=== PATIENT | female | born 1940 | race Caucasian/White ===

== ENCOUNTER 2024-07-29 08:11 | Inpatient (IN) ==
[~2024-07-29 08:11] MED LIST: Naloxone 0.4 mg VIAL 0.4 mg/ml 1 ml VIAL IV PRN; Ondansetron 4 mg VIAL 2 MG/ML 2 ml VIAL IV PRN; Propofol 10 mg/ml 100 ML BTL 1,000 MG/100 ML BTL ONE
[2024-07-29] MEDS: Buffered Lidocaine 1% SYRIN 1 ml INTRADERM ONE (08:42)
[2024-07-29] MEDS: Acetaminophen IV 1 GM/100ML 1,000 MG/100 ML BAG IV ONE (08:42)
[2024-07-29] MEDS: Scopolamine 1 mg/72hr PATCH TRANSDERM ONE (08:43)
[2024-07-29 09:04] LABS: Rapid COVID-19 Molecular Undetected (Undetected)
[2024-07-29] MEDS ORDERED: Tranexamic Acid 1 GM/100ML BAG 2,000 MG/200 ML BAG IV ONE (09:07)
[2024-07-29] MEDS ORDERED: ceFAZolin 2 GM PREMIX 2 GM/50 ML BAG ONE (09:07)
[2024-07-29] MEDS ORDERED: Lidocaine 2% PF 5 ML VIAL ONE (09:12)
[2024-07-29] MEDS ORDERED: Phenylephrine IV 10 MG/ML 1 ml VIAL ONE (09:12)
[2024-07-29] MEDS ORDERED: Rocuronium 50 mg VIAL 10 mg/ml 5 ml VIAL (50 mg) ONE (09:12)
[2024-07-29] MEDS ORDERED: Ondansetron 4 mg VIAL 2 MG/ML 2 ml VIAL ONE (09:12)
[2024-07-29] MEDS ORDERED: Ropivacaine 0.2% 2 MG/ML VIAL ONE (09:14)
[2024-07-29] MEDS ORDERED: Midazolam 2 mg/2 ml VIAL 1 mg/ml 2 ml VIAL (2 mg) ONE ×2 (09:34→10:30)
[2024-07-29] MEDS ORDERED: fentaNYL 100 mcg/2 ml 50 MCG/ML VIAL ONE ×2 (09:34→14:37)
[2024-07-29] MEDS: Lactated Ringers 1000 ml BAG 1,000 ML IV SCH ×2 (09:40→20:09)
[2024-07-29] MEDS ORDERED: ROPIVACAINE 5 MG/ML 30 ML BTL (0.5%) ONE (11:03)
[2024-07-29] MEDS ORDERED: Bupivacaine 0.5% PF 10 ML SDV VIAL INJ ONE (11:39)
[2024-07-29] MEDS ORDERED: Calcium Carb (TUMS) 500 mg CHEW TAB PO PRN (14:07)
[2024-07-29] MEDS ORDERED: Magnesium Hydroxide LIQ 30 ML UDC PO PRN (14:07)
[2024-07-29] MEDS ORDERED: Ondansetron 4 mg VIAL 2 MG/ML 2 ml VIAL IV PRN (14:07)
[2024-07-29] MEDS ORDERED: Lactulose 30 ml UDC PO PRN (14:07)
[2024-07-29] MEDS: fentaNYL 100 mcg/2 ml 50 MCG/ML VIAL IV PRN (14:37)
[2024-07-29] MEDS ORDERED: HYDROmorphone 1 MG/1 ML SYRINGE ONE (17:47)
[2024-07-29] MEDS: HYDROmorphone 1 MG/1 ML SYRINGE IV PRN (17:48)
[2024-07-29 18:50] LABS: ABS Lymphocytes 2.1 10^3/uL (1.0-4.8); ABS Monocytes 1.3 10^3/uL (0.0-0.9); ABS Neutrophils 18.5 10^3/uL (1.5-7.6); ABS Nucleated RBC 0.01 10^3/ul; Hematocrit 35.3 % (35-45); Hemoglobin 11.6 g/dL (11.5-14.3); Lymphocyte % 9.4 %; Mean Corpuscular Hemoglobin 30.7 pg (27-33); Mean Corpuscular Hgb Conc 32.9 g/dL (31-36); Mean Corpuscular Volume 93.4 fL (80-97); Mean Platelet Volume 8.1 fL (7.5-11.2); Platelet Count 245 10^3/uL (150-450); Red Blood Count 3.78 10^6/uL (3.63-4.92); Red Cell Distribution Width 12.8 % (12-17); White Blood Count 21.8 10^3/uL (3.8-11.8)
[2024-07-29 19:12] LABS: Albumin/Globulin Ratio 1.8 (1-3); Calcium 8.9 mg/dL (8.6-10.3); Creatinine, Serum 0.81 mg/dL (0.51-0.95); Globulin 2.2 g/dL (2-4); Potassium 3.9 mmol/L (3.5-5.0); Total Bilirubin 0.4 mg/dL (0.2-1.0); Total Protein 6.2 g/dL (6.4-8.9); eGFR CKD-EPI 72.4 (>60)
[2024-07-29] MEDS: Nitrofurantoin (macrocrystals) 50 mg CAP PO SCH (20:00)
[2024-07-29] MEDS: Morphine 2 MG/ML SYRINGE IV PRN (20:01)
[2024-07-29] MEDS: ceFAZolin 2 GM PREMIX 2 GM/50 ML BAG IV SCH (20:11)
[2024-07-29] MEDS: Fluorometholone 0.1% OPTH.SUS 5 ML BTL BOTH EYES SCH (20:15)
[2024-07-29 20:22] LABS: High Sensitivity Troponin 1 Hr 5 pg/mL (<15)
[2024-07-29] MEDS: Iohexol 350 (CONTRAST) 500 ML MDV IV ONE (20:41)
[2024-07-29] MEDS: Magnesium Hydroxide LIQ 30 ML UDC PO SCH (21:06)
[2024-07-29] MEDS: NF: Azelastine 0.15% NASAL(NF) 30 ML BTL BOTH NARES SCH (21:17)
[2024-07-29] MEDS: Ondansetron ODT 4 mg TAB 4 MG TAB PO PRN (21:49)
[2024-07-29] MEDS: Netarsudil Mesylat/Lananoprost 0.02%-0.005% EYE DRP 2.5 ml BOTTLE BOTH EYES SCH (21:56)
[2024-07-29 23:46] LABS: High Sensitivity Troponin 3 Hr 7 pg/mL (<15)
[2024-07-30 03:12] LABS: ABS Lymphocytes 1.1 10^3/uL (1.0-4.8); ABS Monocytes 1.4 10^3/uL (0.0-0.9); ABS Neutrophils 13.9 10^3/uL (1.5-7.6); ABS Nucleated RBC 0.01 10^3/ul; Eosinophil % 0.1 %; Hematocrit 30.6 % (35-45); Hemoglobin 10.3 g/dL (11.5-14.3); Lymphocyte % 6.6 %; Mean Corpuscular Hemoglobin 31.5 pg (27-33); Mean Corpuscular Hgb Conc 33.7 g/dL (31-36); Mean Corpuscular Volume 93.5 fL (80-97); Mean Platelet Volume 7.8 fL (7.5-11.2); Platelet Count 177 10^3/uL (150-450); Red Blood Count 3.27 10^6/uL (3.63-4.92); Red Cell Distribution Width 12.7 % (12-17); White Blood Count 16.4 10^3/uL (3.8-11.8)
[2024-07-30 03:24] LABS: ALT 29 U/L (7-52); AST 41 U/L (13-39); Albumin 3.7 g/dL (3.2-5.2); Albumin/Globulin Ratio 1.8 (1-3); Alkaline Phosphatase 52 U/L (35-149); Anion Gap 8 mmol/L (2-16); Blood Urea Nitrogen 13 mg/dL (6-24); CO2 Carbon Dioxide 26 mmol/L (22-32); Calcium 8.5 mg/dL (8.6-10.3); Chloride 99 mmol/L (101-111); Creatinine, Serum 0.78 mg/dL (0.51-0.95); Globulin 2.1 g/dL (2-4); Glucose 157 mg/dL (70-100); Magnesium 1.8 mg/dL (1.9-2.7); Potassium 3.8 mmol/L (3.5-5.0); Sodium 133 mmol/L (135-145); Total Bilirubin 0.6 mg/dL (0.2-1.0); Total Protein 5.8 g/dL (6.4-8.9); eGFR CKD-EPI 75.8 (>60)
[2024-07-30] MEDS: Vitamin THERAPEUTIC TAB PO SCH (08:12)
[2024-07-30] MEDS: Magnesium Sulfate 2 gm BAG 2 GM/50 ML BAG IVPB ONE (08:13)
[2024-07-30] MEDS: Iodixanol 320 (CONTRAST) 100 ML SDV IV ONE (10:20)
[2024-07-30] MEDS: Ondansetron 4 mg VIAL 2 MG/ML 2 ml VIAL IV PRN (12:15)
[2024-07-30] MEDS: Ondansetron 4 mg VIAL 2 MG/ML 2 ml VIAL ONE (13:30)
[2024-07-30] MEDS: Scopolamine 1 mg/72hr PATCH TRANSDERM SCH (14:18)
[2024-07-30] MEDS: Dorzolamide 2% OPTH (NF) 10 ML BTL BOTH EYES SCH (19:25)
[2024-07-30 19:31] LABS: TSH Ultra Thyroid Stim Horm 1.11 mcIU/mL (0.34-5.60)
[2024-07-30 19:42] LABS: Folate > 20.00 ng/mL (5.90-24.80)
[2024-07-30 19:43] LABS: Vitamin B12 631 pg/mL (180-914)
[2024-07-31 04:23] LABS: ABS Eosinophils 0.1 10^3/uL (0.0-0.5); ABS Lymphocytes 1.6 10^3/uL (1.0-4.8); ABS Monocytes 1.5 10^3/uL (0.0-0.9); ABS Neutrophils 9.4 10^3/uL (1.5-7.6); Hemoglobin 9.6 g/dL (11.5-14.3); Lymphocyte % 12.3 %; Mean Corpuscular Hemoglobin 31.9 pg (27-33); Mean Corpuscular Hgb Conc 34.3 g/dL (31-36); Mean Platelet Volume 7.9 fL (7.5-11.2); Platelet Count 152 10^3/uL (150-450); Red Blood Count 3.01 10^6/uL (3.63-4.92); Red Cell Distribution Width 12.8 % (12-17); White Blood Count 12.7 10^3/uL (3.8-11.8)
[2024-07-31 04:45] LABS: Albumin 3.3 g/dL (3.2-5.2); Albumin/Globulin Ratio 1.7 (1-3); Calcium 8.2 mg/dL (8.6-10.3); Creatinine, Serum 0.75 mg/dL (0.51-0.95); Magnesium 2.6 mg/dL (1.9-2.7); Potassium 3.7 mmol/L (3.5-5.0); Total Bilirubin 0.4 mg/dL (0.2-1.0); Total Protein 5.3 g/dL (6.4-8.9); eGFR CKD-EPI 79.4 (>60)
[2024-07-31] MEDS: Pantoprazole VIAL 40 MG VIAL IV SCH (08:31)
[2024-07-31] MEDS: Acetaminophen IV 1 GM/100ML 1,000 MG/100 ML BAG IV SCH (11:39)
[2024-08-01 06:22] LABS: ABS Eosinophils 0.2 10^3/uL (0.0-0.5); ABS Lymphocytes 1.4 10^3/uL (1.0-4.8); ABS Neutrophils 9.1 10^3/uL (1.5-7.6); Eosinophil % 1.8 %; Hematocrit 26.8 % (35-45); Lymphocyte % 12.2 %; Mean Corpuscular Hemoglobin 31.4 pg (27-33); Mean Corpuscular Hgb Conc 33.5 g/dL (31-36); Mean Corpuscular Volume 93.8 fL (80-97); Mean Platelet Volume 8.1 fL (7.5-11.2); Platelet Count 167 10^3/uL (150-450); Red Blood Count 2.86 10^6/uL (3.63-4.92); Red Cell Distribution Width 12.9 % (12-17); White Blood Count 11.8 10^3/uL (3.8-11.8)
[2024-08-01 07:10] LABS: Albumin 3.3 g/dL (3.2-5.2); Albumin/Globulin Ratio 1.6 (1-3); Calcium 7.9 mg/dL (8.6-10.3); Creatinine, Serum 0.77 mg/dL (0.51-0.95); Globulin 2.1 g/dL (2-4); Magnesium 2.6 mg/dL (1.9-2.7); Potassium 3.8 mmol/L (3.5-5.0); Total Bilirubin 0.5 mg/dL (0.2-1.0); Total Protein 5.4 g/dL (6.4-8.9)
[2024-08-01] MEDS: PTO:Netarsudil Mesylat/Lananoprost 0.02%-0.005% EYE DRP 2.5 ml BOTTLE BOTH EYES SCH (21:34)
[2024-08-02 05:28] LABS: Hematocrit 27.7 % (35-45); Hemoglobin 9.2 g/dL (11.5-14.3); Mean Corpuscular Hemoglobin 31.3 pg (27-33); Mean Corpuscular Hgb Conc 33.3 g/dL (31-36); Platelet Count 213 10^3/uL (150-450); Red Blood Count 2.94 10^6/uL (3.63-4.92); Red Cell Distribution Width 12.5 % (12-17); White Blood Count 11.3 10^3/uL (3.8-11.8)
[2024-08-02 05:44] LABS: Calcium 8.3 mg/dL (8.6-10.3); Creatinine, Serum 0.85 mg/dL (0.51-0.95); Potassium 3.9 mmol/L (3.5-5.0); eGFR CKD-EPI 68.4 (>60)
[2024-08-02] MEDS ORDERED: Sulfur Hexaflouride MICROSPHR 25 MG VIAL IV PRN (10:34)
[2024-08-03 09:45] VITALS: BP 156/51
== END 2024-08-03 09:53 | DRG 470 ==
LOC: SSU 08:11 → OR 08:11 → INTOOBSV 14:07 → SUATTDRO 14:07 → OBSVTOIN 14:07 → ICU 18:57 → SSU 07-31 17:00
PROVIDERS: ADMIT Orthopaedic Surgery Adult Reconstructive Orthopaedic Surgery; ATTEND Internal Medicine

== ENCOUNTER 2024-08-03 08:42 | Inpatient (IN) ==
[2024-08-03] MEDS ORDERED: Al Hydrox/Mg Hydrox/Simet LIQ 30 ML UDC PO PRN (08:57)
[2024-08-03] MEDS ORDERED: Senna TAB 8.6 mg TAB PO PRN (08:57)
[2024-08-03] MEDS: CMC:Dorzolamide 2% OPTH (NF) 10 ML BTL BOTH EYES SCH (15:18)
[2024-08-03] MEDS: Scopolamine 1 mg/72hr PATCH TRANSDERM SCH (15:21)
[2024-08-03] MEDS: Nitrofurantoin (macrocrystals) 50 mg CAP PO SCH (21:11)
[2024-08-03] MEDS: Netarsudil Mesylat/Lananoprost 0.02%-0.005% EYE DRP 2.5 ml BOTTLE BOTH EYES SCH (21:20)
[2024-08-03] MEDS: Fluorometholone 0.1% OPTH.SUS 5 ML BTL BOTH EYES SCH (21:21)
[2024-08-03] MEDS: AZELASTINE 0.15% BOTH NARES SCH (21:25)
[2024-08-04 06:31] LABS: ABS Eosinophils 0.4 10^3/uL (0.0-0.5); ABS Lymphocytes 1.7 10^3/uL (1.0-4.8); ABS Monocytes 0.9 10^3/uL (0.0-0.9); ABS Neutrophils 8.2 10^3/uL (1.5-7.6); Eosinophil % 3.5 %; Lymphocyte % 15.1 %; Mean Corpuscular Hemoglobin 30.9 pg (27-33); Mean Corpuscular Hgb Conc 33.4 g/dL (31-36); Mean Corpuscular Volume 92.5 fL (80-97); Platelet Count 302 10^3/uL (150-450); Red Blood Count 3.25 10^6/uL (3.63-4.92); Red Cell Distribution Width 12.2 % (12-17); White Blood Count 11.2 10^3/uL (3.8-11.8)
[2024-08-04 07:24] LABS: Albumin 3.7 g/dL (3.2-5.2); Albumin/Globulin Ratio 1.7 (1-3); Calcium 8.8 mg/dL (8.6-10.3); Creatinine, Serum 0.82 mg/dL (0.51-0.95); Globulin 2.2 g/dL (2-4); Potassium 4.1 mmol/L (3.5-5.0); Total Bilirubin 0.8 mg/dL (0.2-1.0); Total Protein 5.9 g/dL (6.4-8.9); eGFR CKD-EPI 71.4 (>60)
[2024-08-04] MEDS: Vitamin THERAPEUTIC TAB PO SCH (07:27)
[2024-08-04] MEDS: Lidocaine PATCH 5% PATCH TRANSDERM SCH (09:32)
[2024-08-06] MEDS: Morphine 2 MG/ML SYRINGE IV ONE (02:14)
[2024-08-06 03:52] LABS: High Sensitivity Troponin 1 Hr 5 pg/mL (<15)
[2024-08-06] MEDS: Iohexol 350 (CONTRAST) 500 ML MDV IV ONE (09:58)
[2024-08-06 10:28] LABS: Albumin/Globulin Ratio 1.7 (1-3); Calcium 9.2 mg/dL (8.6-10.3); Creatinine, Serum 0.9 mg/dL (0.51-0.95); Globulin 2.4 g/dL (2-4); Potassium 4.4 mmol/L (3.5-5.0); Total Bilirubin 0.8 mg/dL (0.2-1.0); Total Protein 6.4 g/dL (6.4-8.9); eGFR CKD-EPI 63.8 (>60)
[2024-08-06 10:29] LABS: Hematocrit 30.1 % (35-45); Hemoglobin 10.1 g/dL (11.5-14.3); Mean Corpuscular Hemoglobin 31.5 pg (27-33); Mean Corpuscular Hgb Conc 33.5 g/dL (31-36); Mean Corpuscular Volume 93.9 fL (80-97); Red Blood Count 3.21 10^6/uL (3.63-4.92); Red Cell Distribution Width 12.6 % (12-17)
[2024-08-06 11:01] LABS: ABS Basophils 0.1 10^3/uL (0.0-0.1); ABS Eosinophils 0.4 10^3/uL (0.0-0.5); ABS Lymphocytes 3.6 10^3/uL (1.0-4.8); ABS Monocytes 1.2 10^3/uL (0.0-0.9); ABS Neutrophils 8.7 10^3/uL (1.5-7.6); Lymphocyte % 25.5 %; Mean Platelet Volume 7.2 fL (7.5-11.2); Platelet Count 460 10^3/uL (150-450)
[2024-08-07 06:41] LABS: ABS Eosinophils 0.3 10^3/uL (0.0-0.5); ABS Neutrophils 6.8 10^3/uL (1.5-7.6); Eosinophil % 3.3 %; Hematocrit 26.7 % (35-45); Hemoglobin 8.9 g/dL (11.5-14.3); Mean Corpuscular Hemoglobin 30.9 pg (27-33); Mean Corpuscular Hgb Conc 33.2 g/dL (31-36); Mean Platelet Volume 6.8 fL (7.5-11.2); Platelet Count 377 10^3/uL (150-450); Red Blood Count 2.87 10^6/uL (3.63-4.92); Red Cell Distribution Width 12.9 % (12-17); White Blood Count 10.2 10^3/uL (3.8-11.8)
[2024-08-07 07:12] LABS: Albumin 3.5 g/dL (3.2-5.2); Albumin/Globulin Ratio 1.7 (1-3); Calcium 8.6 mg/dL (8.6-10.3); Creatinine, Serum 0.95 mg/dL (0.51-0.95); Globulin 2.1 g/dL (2-4); Potassium 4.3 mmol/L (3.5-5.0); Total Bilirubin 0.6 mg/dL (0.2-1.0); Total Protein 5.6 g/dL (6.4-8.9); eGFR CKD-EPI 59.8 (>60)
[2024-08-08] MEDS: PAIN RELIEVING RUB (MENTHOL/SALICYLATE) 1 APPLIC TUBE TOPICAL PRN (04:28)
[2024-08-08 08:15] LABS: ABS Eosinophils 0.3 10^3/uL (0.0-0.5); ABS Lymphocytes 1.7 10^3/uL (1.0-4.8); ABS Monocytes 0.9 10^3/uL (0.0-0.9); Eosinophil % 2.4 %; Hematocrit 27.9 % (35-45); Hemoglobin 9.7 g/dL (11.5-14.3); Lymphocyte % 15.1 %; Mean Corpuscular Hemoglobin 32.5 pg (27-33); Mean Corpuscular Hgb Conc 34.6 g/dL (31-36); Mean Corpuscular Volume 93.9 fL (80-97); Mean Platelet Volume 6.8 fL (7.5-11.2); Platelet Count 376 10^3/uL (150-450); Red Blood Count 2.97 10^6/uL (3.63-4.92); Red Cell Distribution Width 13.1 % (12-17); White Blood Count 10.9 10^3/uL (3.8-11.8)
[2024-08-08] MEDS ORDERED: Polyethylene Glycol 3350 17 GM PACKET PO PRN (08:19)
[2024-08-08] MEDS: Magnesium Hydroxide LIQ 30 ML UDC PO PRN (16:00)
[2024-08-11 09:40] LABS: ABS Eosinophils 0.1 10^3/uL (0.0-0.5); ABS Lymphocytes 1.1 10^3/uL (1.0-4.8); ABS Monocytes 0.5 10^3/uL (0.0-0.9); ABS Neutrophils 4.5 10^3/uL (1.5-7.6); Eosinophil % 1.7 %; Hematocrit 29.3 % (35-45); Hemoglobin 9.9 g/dL (11.5-14.3); Lymphocyte % 17.9 %; Mean Corpuscular Hemoglobin 31.3 pg (27-33); Mean Corpuscular Hgb Conc 33.8 g/dL (31-36); Mean Corpuscular Volume 92.8 fL (80-97); Mean Platelet Volume 6.8 fL (7.5-11.2); Platelet Count 301 10^3/uL (150-450); Red Blood Count 3.16 10^6/uL (3.63-4.92); Red Cell Distribution Width 13.7 % (12-17); White Blood Count 6.3 10^3/uL (3.8-11.8)
[2024-08-11 10:42] LABS: Albumin 3.7 g/dL (3.2-5.2); Albumin/Globulin Ratio 1.6 (1-3); Calcium 8.6 mg/dL (8.6-10.3); Creatinine, Serum 0.78 mg/dL (0.51-0.95); Globulin 2.3 g/dL (2-4); Potassium 4.1 mmol/L (3.5-5.0); Total Bilirubin 0.5 mg/dL (0.2-1.0); eGFR CKD-EPI 75.8 (>60)
[2024-08-12 06:21] VITALS: BP 151/72
== END 2024-08-12 13:00 | disposition home or self-care (01) | DRG 553 ==
LOC: PMRU 10:04
PROVIDERS: ADMIT Physical Medicine & Rehabilitation; ATTEND Physical Medicine & Rehabilitation